=== PATIENT | female | born 1950 | race Caucasian/White ===

== ENCOUNTER 2017-12-26 18:11 | Emergency (ER) | payer MEDICARE ==
[2017-12-26] MEDS ORDERED: Ketamine 50 MG/ML VIAL ONE (18:37)
[2017-12-26 18:46] LABS: ALT (SGPT) 151 U/L (8-55); AST (SGOT) 171 U/L (5-34); Albumin 3.9 g/dL (3.4-4.8); Alkaline Phosphatase 151 U/L (40-150); Anion Gap 23 mmol/L (10-20); BUN (Urea Nitrogen) 20 mg/dL (9.8-20.1); Bilirubin, Total 0.3 mg/dL (0.2-1.2); Calc. Creatinine Clearance 0 mL/min (70-130); Calcium 8.7 mg/dL (7.8-10.44); Carbon Dioxide 15 mmol/L (23-31); Chloride 101 mmol/L (98-107); Estimated GFR-MDRD 33; Globulin 3.3 g/dL (2.4-3.5); Glucose 246 mg/dL (80-115); Potassium 4.2 mmol/L (3.5-5.1); Protein, Total 7.2 g/dL (6.0-8.3); Sodium 135 mmol/L (136-145)
[2017-12-26 18:47] LABS: Band 14 % (5-11); Hemoglobin 12.6 g/dL (12.0-16.0); Lymphocytes 24 % (21-51); MDiff Complete? YES; Mean Corpuscular HGB CONC 34.1 g/dL (32.0-36.0); Mean Corpuscular Hemoglobin 32.7 pg (27.0-31.0); Mean Corpuscular Volume 95.8 fl (81.0-99.0); Mean Platelet Volume 7.2 fL (7.4-10.4); Monocytes 4 % (0-10); Neutrophil 58 % (42-75); Platelet Count 251 thou/uL (130-400); RBC Distribution Width 12.3 % (11.5-14.5); Red Blood Cell (RBC) Count 3.87 mill/uL (4.20-5.40); White Blood Cell (WBC) Count 20.5 thou/uL (4.8-10.8)
[2017-12-26 18:48] LABS: Troponin I Less than 0.010 ng/mL (< 0.028)
[2017-12-26 19:04] LABS: Bilirubin Negative (Negative); Blood, Urine Small (Negative); Clarity Slightly Cloudy (Clear); Glucose, Urine (Dipstick) Negative (Negative); Leukocyte Negative (Negative); Nitrite Negative (Negative); Protein, Urine (Dipstick) 100 mg/dL (Neg-Trace); Urobilinogen 0.2 mg/dL (0.2-1.0); pH, Urine 5.5 (5.0-9.0)
[2017-12-26 19:13] LABS: Bacteria/HPF None Seen HPF (None Seen); Crystals/HPF None Seen HPF (Negative); Hyaline Casts/LPF NONE SEEN LPF (0-3 Hyaline); Oval Fat Bodies/HPF None Seen HPF (None Seen); RBC/HPF 0-3 HPF (0-3); Renal Epithelial None Seen HPF (0-3); Sperm/HPF None Seen HPF (None Seen); Squamous Epithelial None Seen HPF (0-3); Transitional Epithelial NONE SEEN HPF (0-3); Trichomonas/HPF None Seen HPF (None Seen); WBC/HPF None Seen HPF (0-3); Yeast-All Forms None Seen HPF (None Seen)
[2017-12-26 19:14] LABS: Other Casts/LPF None Seen LPF (0-3 Hyaline)
[2017-12-26 19:19] LABS: Cocaine Metabolite Screen Not Detected (NotDetected); Methamphetamine Not Detected (NotDetected); Phencyclidine (PCP) Not Detected (NotDetected); THC/Cannabinoid Screen Not Detected (NotDetected)
[2017-12-26 19:20] LABS: Amphetamine Not Detected (NotDetected); Barbiturates Screen Not Detected (NotDetected); Benzodiazepine Screen Not Detected (NotDetected); Medtox Control Line Valid? VALID (VALID); Methadone Not Detected (NotDetected); Opiate Screen Not Detected (NotDetected); Oxycodone Screen Not Detected (NotDetected); Tricyclic Screen Not Detected (NotDetected)
--- NOTE | 2017-12-26 21:07 | RAD ---
PORTABLE CHEST 12/26/17 An AP portable film at 1809 is compared with a 03/16/14 study. The patient has been intubated. The tip of the endotracheal tube goes into the right main bronchus an d should be retracted several centimeters. There is some resulting atelectasis and increased density in the left upper lobe. An NG tube has been placed. It is difficult to see it well, but the tip appea rs to curl into the fundus of the stomach. A better centered and penetrated film would be helpful. Th e right lung is clear. The heart is normal in size at the moment. IMPRESSION: Status post intubation. Endotracheal tube in the right main bronchus, needing to be retracted conside rably. Findings discussed with Dr. Muller at 1839 on 12/26/17. POS: HOME
== END 2017-12-26 19:13 | disposition short-term general hospital (02) ==
LOC: BURERS 18:11 → EDBD 18:11 → BURERS 19:13
DX: T17.920A Food in respiratory tract, part unspecified causing asphyxiation, initial encounter (principal); J96.90 Respiratory failure, unspecified, unspecified whether with hypoxia or hypercapnia
CPT/HCPCS: 51702; 71045; 80053; 80306; 81003; 81015; 82553; 84484; 85025; 93005; 96374